=== PATIENT | male | born 1955 | race African-American/Black ===

== ENCOUNTER 2017-12-31 19:28 | Emergency (ER) | payer MEDICARE, MEDICAID ==
[~2017-12-31] VITALS: Ht 177.8 cm; Wt 90.9 kg
[~2017-12-31 19:28] MED LIST: ASPI-986 PO; Aspirin PO; Folic Acid PO; HYDR25TA PO; LIP40 PO; LISI10TA5 PO; Multivitamins,Ther W-Minerals PO; OMEG1CAP82 PO
[2017-12-31] MEDS ORDERED: ACETAMINOPHEN 325MG TABLET PO ONE (22:30)
[2018-01-01 00:23] VITALS: BP 161/109
[2018-01-01] MEDS ORDERED: HYDROCHLOROTHIAZIDE 25MG TABLET PO ONE (00:30)
== END 2018-01-01 01:22 | disposition home or self-care (01) ==
LOC: ER 19:54
DX: S09.8XXA Other specified injuries of head, initial encounter (principal); I10 Essential (primary) hypertension; I69.351 Hemiplegia and hemiparesis following cerebral infarction affecting right dominant side; Z79.82 Long term (current) use of aspirin; V43.62XA Car passenger injured in collision with other type car in traffic accident, initial encounter; Y93.89 Activity, other specified; Y92.411 Interstate highway as the place of occurrence of the external cause
CPT/HCPCS: 99284